=== PATIENT | male | born 1995 | race African-American/Black ===

== ENCOUNTER 2023-07-05 18:45 | Emergency (ER) | payer OTHER, SELFPAY ==
[2023-07-05 19:07] VITALS: BP 174/89
[2023-07-05 23:05] VITALS: BP 159/99
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
== END 2023-07-05 23:06 | disposition home or self-care (01) ==
LOC: EMR 18:45
PROVIDERS: EMERGENCY PHYSICIAN Student in an Organized Health Care Education/Training Program
DX: M79.18 Myalgia, other site (principal); V89.2XXA Person injured in unspecified motor-vehicle accident, traffic, initial encounter
CPT/HCPCS: 99282